=== PATIENT | female | born 1935 | race Caucasian/White ===

== ENCOUNTER → 2018-11-23 | Outpatient (CLI) | payer MEDICARE, MEDICAID ==
[~2018-11-23] MED LIST: ADVI200C5 PO; ASPI81TA85 PO; ATEN50TA2 PO; ATOR1TAB21 PO; ATOR80TA59 PO; BAYE325T16 PO; BREO1INH INH; CALCCHW4 PO; EXEM25TA PO; HYDR-3715 PO; LIDOCAINE 1% MDV 20ML VIAL As Ordered ONE; LOSA50TA88 PO; METF500T13 PO; PLAV1TAB2 PO; PROAAER10 INH; STOO1CAP9 PO
== END ==
LOC: M RADPRO 11:06
PROVIDERS: ATTEND Surgery
DX: R92.0 Mammographic microcalcification found on diagnostic imaging of breast (principal); Z53.8 Procedure and treatment not carried out for other reasons

== ENCOUNTER → 2018-12-28 | Outpatient (CLI) | payer MEDICARE, MEDICAID ==
[~2018-12-28] MED LIST changes: -LIDOCAINE 1% MDV 20ML VIAL As Ordered ONE; +PROHANCE 279.3MG/ML 15ML VIAL (A9576) As Ordered ONE
--- NOTE | 2018-12-29 08:28 | REP ---
Bilateral breast MRI study without and with IV gadolinium: History: History of bilateral breast carcinoma. Calcifications on mammography left breast . Comparison mammography October 25, 2018 and October 24, 2017. Most recent mammography demonstrates coarse dystrophic type calcifications at the surgical site on the left. Technique: 3 Kaitlin MRI imaging was performed with a dedicated breast coil. Axial, coronal, and sagittal T1 and T2-weighted scans were obtained with and without fat saturation in the usual fashion. The study includes dynamically acquired post gadolinium enhanced imaging subtraction imaging. Maximal intensity projection and multiplanar re-formation imaging is included as well. The study was interpreted with the aid of Project WBSD, an FDA approved computer-aided detection (CAD) software program, on a dedicated breast MRI work station. The gadolinium enhancement dose is 13.4 ml of intravenous ProHance. Findings: Breast parenchyma is predominately fat replaced. Mild fibroglandular elements are seen. There is no evidence of axillary lymphadenopathy or breast cystic change. There is postoperative fibrosis in the upper outer quadrant of each breast, left more prominently than right. There is no significant background parenchymal enhancement. Dynamically acquired sequential post gadolinium enhanced images show no suspicious focus of enhancement and/or washout in either breast to suggest malignancy. Subtraction images are unremarkable. No evidence of suspicious gadolinium enhancement is seen at the excisional biopsy site in the left breast or elsewhere. Impression: BIRADS category II benign bilateral breast MRI mammographic findings. Electronically Signed by Karl Ventura MD 12/29/2018 12:24 P
== END ==
LOC: M RAD 14:53
PROVIDERS: ATTEND Nurse Practitioner Family
DX: C50.919 Malignant neoplasm of unspecified site of unspecified female breast (principal)
CPT/HCPCS: A9576; C8908

== ENCOUNTER → 2019-01-17 | Outpatient (REF) | payer MEDICARE, MEDICAID ==
[~2019-01-17] MED LIST changes: -PROHANCE 279.3MG/ML 15ML VIAL (A9576) As Ordered ONE
== END ==
LOC: M LAB LCGH 11:47
PROVIDERS: ATTEND Nurse Practitioner Family
DX: D48.9 Neoplasm of uncertain behavior, unspecified (principal)

== ENCOUNTER → 2019-02-21 | Outpatient (REF) | LOC: M LAB LCGH 15:09 | PROVIDERS: ATTEND Nurse Practitioner Family | DX: D48.9 Neoplasm of uncertain behavior, unspecified (principal) ==

== ENCOUNTER → 2019-10-08 | Outpatient (CLI) | payer MEDICARE, MEDICAID ==
[2019-10-08 11:16] LABS: BASO % 0.3 % (0.0-1.0); EOS % 0.6 % (0.0-3.0); HEMATOCRIT 38.9 % (36.0-47.0); HEMOGLOBIN 13.7 g/dl (12.0-15.5); LYMPH # 1.5 10^3/uL (1.5-5.0); LYMPH % 21.6 % (24.0-44.0); MEAN CORPUSCULAR HEMOGLOBIN 33.4 pg (27.0-33.0); MEAN CORPUSCULAR HGB CONC 35.2 g/dl (32.0-36.5); MEAN CORPUSCULAR VOLUME 94.9 fl (80.0-96.0); MONO # 0.6 10^3/uL (0.0-0.8); MONO % 8.1 % (0.0-5.0); NEUTROPHILS # 4.7 10^3/uL (1.5-8.5); NEUTROPHILS % 69.3 % (36.0-66.0); PLATELET COUNT, AUTOMATED 233 10^3/uL (150-450); WHITE BLOOD COUNT 6.8 10^3/uL (4.0-10.0)
[2019-10-08 11:47] LABS: ALBUMIN 3.7 GM/DL (3.2-5.2); ALT/SGPT 33 U/L (12-78); BILIRUBIN,TOTAL 0.6 MG/DL (0.2-1.0); BLOOD UREA NITROGEN 16 MG/DL (7-18); CALCIUM LEVEL 9.1 MG/DL (8.8-10.2); CARBON DIOXIDE LEVEL 31 MEQ/L (21-32); CHLORIDE LEVEL 102 MEQ/L (98-107); CREATININE FOR GFR 0.75 MG/DL (0.55-1.30); GLOMERULAR FILTRATION RATE > 60.0 (>32); GLUCOSE, FASTING 73 MG/DL (70-100); POTASSIUM SERUM 4.6 MEQ/L (3.5-5.1); SODIUM LEVEL 136 MEQ/L (136-145); TOTAL PROTEIN 6.6 GM/DL (6.4-8.2)
== END ==
LOC: M LAB 10:46
PROVIDERS: ATTEND Internal Medicine Hematology
DX: Z85.3 Personal history of malignant neoplasm of breast (principal)

== ENCOUNTER → 2019-11-07 | Outpatient (REF) | payer MEDICARE | LOC: M LAB REF 18:03 | PROVIDERS: ATTEND Dermatology | DX: L90.5 Scar conditions and fibrosis of skin (principal); L57.8 Other skin changes due to chronic exposure to nonionizing radiation ==

== ENCOUNTER → 2019-12-31 | Outpatient (CLI) | payer MEDICARE ==
[~2019-12-31] MED LIST changes: +ASPI81CH33 PO; -ASPI81TA85 PO; +ASPI81TA86 PO; +ELIQ5TAB PO; +FURO20TA2 PO; +METO1TAB32 PO
[2019-12-31 18:14] LABS: ALBUMIN 3.8 GM/DL (3.2-5.2); ALT/SGPT 28 U/L (12-78); BILIRUBIN,TOTAL 0.3 MG/DL (0.2-1.0); BLOOD UREA NITROGEN 9 MG/DL (7-18); CALCIUM LEVEL 9.2 MG/DL (8.8-10.2); CARBON DIOXIDE LEVEL 29 MEQ/L (21-32); CHLORIDE LEVEL 98 MEQ/L (98-107); GLOMERULAR FILTRATION RATE > 60.0 (>32); GLUCOSE, FASTING 71 MG/DL (70-100); POTASSIUM SERUM 4.9 MEQ/L (3.5-5.1); SODIUM LEVEL 133 MEQ/L (136-145); TOTAL PROTEIN 6.5 GM/DL (6.4-8.2)
[2019-12-31 18:49] LABS: BASO % 0.2 % (0.0-1.0); EOS # 0.1 10^3/uL (0.0-0.5); EOS % 0.7 % (0.0-3.0); HEMATOCRIT 40.6 % (36.0-47.0); HEMOGLOBIN 13.8 g/dl (12.0-15.5); LYMPH % 23.8 % (24.0-44.0); MEAN CORPUSCULAR HEMOGLOBIN 32.9 pg (27.0-33.0); MEAN CORPUSCULAR VOLUME 96.7 fl (80.0-96.0); MONO # 0.7 10^3/uL (0.0-0.8); MONO % 8.9 % (0.0-5.0); NEUTROPHILS # 5.4 10^3/uL (1.5-8.5); NEUTROPHILS % 66.2 % (36.0-66.0); PLATELET COUNT, AUTOMATED 263 10^3/uL (150-450); WHITE BLOOD COUNT 8.2 10^3/uL (4.0-10.0)
== END ==
LOC: M WUC 12:47
PROVIDERS: ATTEND Internal Medicine Hematology
DX: C50.911 Malignant neoplasm of unspecified site of right female breast (principal); C50.912 Malignant neoplasm of unspecified site of left female breast

== ENCOUNTER → 2020-03-28 | Outpatient (CLI) | payer MEDICARE, MEDICAID | LOC: M LABSMTC 10:29 | PROVIDERS: ATTEND Anesthesiology | DX: Z01.812 Encounter for preprocedural laboratory examination (principal); Z20.828 Contact with and (suspected) exposure to other viral communicable diseases | CPT/HCPCS: C9803; U0003 ==

== ENCOUNTER 2020-04-02 06:24 | Day surgery (SDC) | payer MEDICARE, MEDICAID ==
[~2020-04-02] VITALS: Ht 157.5 cm; Wt 68.0 kg
[~2020-04-02 06:24] MED LIST changes: +LR 1,000 ML IV ONE
[2020-04-02] MEDS ORDERED: propofoL 200 MG/20 ML VIAL As Ordered ONE (07:16)
[2020-04-02 08:55] VITALS: BP 104/59
--- NOTE | 2020-04-02 10:06 | ECGEPIP ---
[facility] Test Date: 2020-04-02 Pat Name: EVELYN CARRASQUILLO Department: Room: - Gender: Female Pastry Decorator: ANTONIETA : 1935 Requested By: Rubens Perez Order Number: [id number] Reading MD: Kim Arzola Measurements Intervals [place] Rate: 129 P: MO: 0 QRS: 17 QRSD: 82 T: 253 QT: 302 QTc: 443 Interpretive Statements POSSIBLE ATRIAL FLUTTER/TACHYCARDIA WITH RAPID VENTRICULAR RESPONSE ST DEVIATION AND MODERATE ST T-WAVE ABNORMALITY, CONSIDER INFERO LATERAL ISCHEMIA NO PRIOR Electronically Signed on 04-02-2020 10:05:54 EDT by Kim Arzola
--- NOTE | 2020-04-02 10:09 | ECGEPIP ---
[facility] Test Date: 2020-04-02 Pat Name: EVELYN CARRASQUILLO Department: Room: - Gender: Female Mutual Fund Sales Agent: ANTONIETA : 1935 Requested By: Rbuens Perez Order Number: [id number] Reading MD: Kim Arzola Measurements Intervals [place] Rate: 55 P: 85 DE: 181 QRS: 16 QRSD: 87 T: 50 QT: 440 QTc: 424 Interpretive Statements SINUS BRADYCARDIA WITH OCCASIONAL SUPRAVENTRICULAR PREMATURE COMPLEXES ST & T-WAVE ABNORMALITY INFEROLATERAL CONVERISON FROM POSSIBLE A FLUTTER WITH R RVR 04/02/20 652 Electronically Signed on 04-02-2020 10:08:36 EDT by Kim Arzola
--- NOTE | 2020-04-02 16:16 | RO ---
DATE OF OPERATION: 04/02/2020 PREOPERATIVE DIAGNOSIS: Atrial flutter. POSTOPERATIVE DIAGNOSIS: Atrial flutter. PROCEDURE: Cardioversion. ANESTHESIA: Tayler Taylor CRNA BRIEF HISTORY: Mrs. Serna is a very pleasant 84-year-old female with established coronary artery disease and now persistent atrial fibrillation/flutter of approximately two months duration. She was reasonably rate controlled and anticoagulated but in spite of it she continued to be highly symptomatic complaining of exertional intolerance and profound fatigue. Consequently, we decided to proceed with direct current (DC) cardioversion in order to attempt to restore sinus rhythm. I obtained the necessary consent on an outpatient basis. I explained to the patient and her son that even though the procedure is almost universally successful, there is definitely a chance of early relapse. They understood the implications and she did sign the appropriate consent. PROCEDURE NOTE: Patient presented in fasting condition. After appropriate monitors were applied and timeout was taken, she was cardioverted with 150 joules of energy applied with defibrillation patches in anterior position in synchronized mode. There were no immediate complications and a single shock led to evangelical of sinus rhythm initially with frequent premature atrial contractions (PACs). She was relatively bradycardic after cardioversion with heart rate in the low 50s but otherwise there were no additional problems. At the time of my dictation, 12-lead ECG is pending. The patient will be discharged home on her chronic medications with exception of discontinuation of metoprolol. She already has a scheduled appointment with me tomorrow. JESSICA
== END 2020-04-02 09:08 | disposition home or self-care (01) ==
LOC: M SDC 06:24
PROVIDERS: ATTEND Internal Medicine Cardiovascular Disease
DX: I48.92 Unspecified atrial flutter (principal); I25.10 Atherosclerotic heart disease of native coronary artery without angina pectoris; I10 Essential (primary) hypertension; I25.2 Old myocardial infarction; E78.5 Hyperlipidemia, unspecified; R53.83 Other fatigue; Z79.01 Long term (current) use of anticoagulants; Z79.84 Long term (current) use of oral hypoglycemic drugs; E11.9 Type 2 diabetes mellitus without complications; J44.9 Chronic obstructive pulmonary disease, unspecified; Z88.1 Allergy status to other antibiotic agents; Z87.891 Personal history of nicotine dependence; Z79.82 Long term (current) use of aspirin

== ENCOUNTER → 2020-04-27 | Outpatient (CLI) | payer MEDICARE, MEDICAID ==
[~2020-04-27] MED LIST changes: -LR 1,000 ML IV ONE
== END ==
LOC: M LABSMTC 10:07
PROVIDERS: ATTEND Internal Medicine Cardiovascular Disease
DX: Z01.812 Encounter for preprocedural laboratory examination (principal); Z20.828 Contact with and (suspected) exposure to other viral communicable diseases; I48.3 Typical atrial flutter

== ENCOUNTER 2021-10-02 12:58 | Inpatient (IN) | payer MEDICARE, MEDICAID ==
[~2021-10-02] VITALS: Ht 157.5 cm; Wt 62.5 kg
[~2021-10-02 12:58] MED LIST changes: +LOSA50TA28 PO; -LOSA50TA88 PO; -STOO1CAP9 PO; +STOO240C PO
[2021-10-02] MEDS ORDERED: LOSA25TA13 PO (13:20)
[2021-10-02] MEDS ORDERED: BACTDSTA PO (13:24)
[2021-10-02] MEDS ORDERED: ASPIRIN 81 MG CHEW TABLET PO ONE (13:30)
[2021-10-02 14:27] LABS: BASO % 0.1 % (0.0-1.0); HEMATOCRIT 33.5 % (36.0-47.0); HEMOGLOBIN 11.5 g/dl (12.0-15.5); LYMPH # 0.8 10^3/uL (1.5-5.0); LYMPH % 3.4 % (24.0-44.0); MEAN CORPUSCULAR HGB CONC 34.3 g/dl (32.0-36.5); MEAN CORPUSCULAR VOLUME 96.3 fl (80.0-96.0); MONO # 0.8 10^3/uL (0.0-0.8); MONO % 3.4 % (2.0-8.0); NEUTROPHILS # 22.5 10^3/uL (1.5-8.5); NEUTROPHILS % 92.1 % (36.0-66.0); PLATELET COUNT, AUTOMATED 262 10^3/uL (150-450); RED BLOOD COUNT 3.48 10^6/uL (4.00-5.40); WHITE BLOOD COUNT 24.4 10^3/uL (4.0-10.0)
[2021-10-02 14:38] LABS: INR 1.18; PROTHROMBIN TIME 15.4 SECONDS (12.7-14.5)
[2021-10-02 14:49] LABS: ALBUMIN 3.4 GM/DL (3.2-5.2); BILIRUBIN,DIRECT 0.2 MG/DL (0.0-0.2); BILIRUBIN,TOTAL 0.6 MG/DL (0.2-1.0); CALCIUM LEVEL 9.4 MG/DL (8.8-10.2); CREATININE FOR GFR 1.41 MG/DL (0.55-1.30); GLOMERULAR FILTRATION RATE 37.6 (>32); POTASSIUM SERUM 5.2 MEQ/L (3.5-5.1); TOTAL PROTEIN 6.1 GM/DL (6.4-8.2)
[2021-10-02] MEDS ORDERED: cefTRIAXone SOD 1 GM in D5W MINI-BAG PLUS 50 ML IV ONE (14:50)
[2021-10-02] MEDS ORDERED: AZITHROMYCIN INJ 500 MG, VIAL MATE ADAPTER 1 EACH in NS 250 ML IV ONE (14:50)
[2021-10-02 15:00] LABS: ABG BASE EXCESS -2.3 (-2.0-2.0); ABG HCO3 19.9 MEQ/L (22.0-26.0); ABG O2 SATURATION 98.2 % (95.0-99.0); ABG PARTIAL PRESSURE CO2 26.7 mmHg (35.0-45.0); ABG PARTIAL PRESSURE O2 119.6 mmHg (75.0-100.0); ABG STANDARD HCO3 22.6 MEQ/L (22.0-26.0); ABG TOTAL CO2 20.8 MEQ/L (23.0-31.0); ABG pH (ARTERIAL) 7.491 UNITS (7.350-7.450)
[2021-10-02] MEDS ORDERED: ELIQ2.5T PO (16:21)
[2021-10-02] MEDS ORDERED: LOSA50TA28 PO (16:21)
[2021-10-02] MEDS ORDERED: ACETAMINOPHEN TAB 650MG DOSE (2X325MG) PO PRN (17:05)
[2021-10-02] MEDS ORDERED: MAALOX 30 ML SUSP *UDC PO PRN (17:05)
[2021-10-02] MEDS ORDERED: ASPI-527 PO (17:18)
[2021-10-02] MEDS ORDERED: HOME MED LIST COMPLETE! XX SCH (17:20)
[2021-10-02] MEDS ORDERED: VANCOMYCIN HCL 1,000 MG, VIAL MATE ADAPTER 1 EACH in NS 250 ML IV ONE (18:00)
[2021-10-02] MEDS: FUROSEMIDE 40MG/4ML VIAL (J1940) IV SCH (18:32)
[2021-10-02] MEDS: DOCUSATE SODIUM 100MG CAPSULE PO SCH (22:28)
[2021-10-02] MEDS: CEFEPIME HCL 1 GM in D5W MINI-BAG PLUS 50 ML IV SCH (22:28)
[2021-10-02 22:50] VITALS: BP 131/60
[2021-10-03] MEDS: FUROSEMIDE 40MG/4ML VIAL (J1940) IV SCH ×2 (01:23→09:05)
[2021-10-03 03:51] VITALS: BP 113/48
[2021-10-03] MEDS ORDERED: ALBUTEROL 90 MCG/ACT 8GM HFA INHALER INH PRN (07:20)
[2021-10-03] MEDS ORDERED: IPRATROPIUM 0.5MG/ALBUTEROL 2.5MG INH SOL UD 3ML (DUONEB) NEB PRN (07:20)
[2021-10-03 07:30] LABS: BASO % 0.2 % (0.0-1.0); EOS # 0.1 10^3/uL (0.0-0.5); EOS % 0.6 % (0.0-3.0); HEMATOCRIT 30.3 % (36.0-47.0); HEMOGLOBIN 10.4 g/dl (12.0-15.5); LYMPH # 1.2 10^3/uL (1.5-5.0); LYMPH % 9.5 % (24.0-44.0); MEAN CORPUSCULAR HEMOGLOBIN 32.8 pg (27.0-33.0); MEAN CORPUSCULAR HGB CONC 34.3 g/dl (32.0-36.5); MEAN CORPUSCULAR VOLUME 95.6 fl (80.0-96.0); MONO # 0.7 10^3/uL (0.0-0.8); MONO % 5.6 % (2.0-8.0); NEUTROPHILS # 10.3 10^3/uL (1.5-8.5); NEUTROPHILS % 83.5 % (36.0-66.0); PLATELET COUNT, AUTOMATED 232 10^3/uL (150-450); RED BLOOD COUNT 3.17 10^6/uL (4.00-5.40); WHITE BLOOD COUNT 12.4 10^3/uL (4.0-10.0)
[2021-10-03 07:43] VITALS: BP 130/60
[2021-10-03 08:02] LABS: ALBUMIN 2.9 GM/DL (3.2-5.2); BILIRUBIN,TOTAL 0.8 MG/DL (0.2-1.0); CALCIUM LEVEL 8.8 MG/DL (8.8-10.2); CREATININE FOR GFR 1.5 MG/DL (0.55-1.30); GLOMERULAR FILTRATION RATE 35.1 (>32); MAGNESIUM LEVEL 1.9 MG/DL (1.8-2.4)
[2021-10-03] MEDS: SYMBICORT 160/4.5MCG INHALER 6GM INH SCH ×2 (08:14→19:11)
[2021-10-03] MEDS: APIXABAN 2.5 MG TAB (ELIQUIS) PO SCH ×2 (09:05→20:21)
[2021-10-03] MEDS: DOCUSATE SODIUM 100MG CAPSULE PO SCH ×2 (09:05→20:20)
[2021-10-03] MEDS: ASPIRIN ENTERIC 325 MG TAB PO SCH (09:05)
[2021-10-03] MEDS: LOSARTAN 25 MG TAB PO SCH (09:06)
[2021-10-03 12:00] VITALS: BP 100/48
[2021-10-03 16:00] VITALS: BP 113/53
[2021-10-03] MEDS ORDERED: VANCOMYCIN HCL 750 MG, VIAL MATE ADAPTER 1 EACH in NS 250 ML IV SCH (18:00)
[2021-10-03 19:51] VITALS: BP 110/49
[2021-10-03] MEDS: CEFEPIME HCL 1 GM in D5W MINI-BAG PLUS 50 ML IV SCH (20:20)
[2021-10-03] MEDS ORDERED: ATORVASTATIN 20 MG TAB PO SCH (21:00)
[2021-10-04 04:13] VITALS: BP 120/56
[2021-10-04 06:09] LABS: BASO % 0.2 % (0.0-1.0); EOS # 0.2 10^3/uL (0.0-0.5); EOS % 1.5 % (0.0-3.0); HEMATOCRIT 28.3 % (36.0-47.0); HEMOGLOBIN 9.9 g/dl (12.0-15.5); LYMPH # 1.2 10^3/uL (1.5-5.0); LYMPH % 11.8 % (24.0-44.0); MEAN CORPUSCULAR HEMOGLOBIN 33.2 pg (27.0-33.0); MONO # 0.8 10^3/uL (0.0-0.8); MONO % 8.1 % (2.0-8.0); NEUTROPHILS # 7.6 10^3/uL (1.5-8.5); NEUTROPHILS % 77.6 % (36.0-66.0); PLATELET COUNT, AUTOMATED 205 10^3/uL (150-450); RED BLOOD COUNT 2.98 10^6/uL (4.00-5.40); WHITE BLOOD COUNT 9.8 10^3/uL (4.0-10.0)
[2021-10-04 06:34] LABS: ALBUMIN 2.8 GM/DL (3.2-5.2); CALCIUM LEVEL 8.4 MG/DL (8.8-10.2); CREATININE FOR GFR 1.25 MG/DL (0.55-1.30); GLOMERULAR FILTRATION RATE 43.3 (>32); MAGNESIUM LEVEL 1.9 MG/DL (1.8-2.4); POTASSIUM SERUM 3.7 MEQ/L (3.5-5.1); TOTAL PROTEIN 5.2 GM/DL (6.4-8.2)
[2021-10-04] MEDS: SYMBICORT 160/4.5MCG INHALER 6GM INH SCH (07:11)
[2021-10-04 07:57] VITALS: BP 125/53
[2021-10-04 08:08] VITALS: BP 125/53
[2021-10-04] MEDS: LOSARTAN 25 MG TAB PO SCH (08:08)
[2021-10-04] MEDS: ASPIRIN ENTERIC 325 MG TAB PO SCH (08:08)
[2021-10-04] MEDS: DOCUSATE SODIUM 100MG CAPSULE PO SCH (08:08)
[2021-10-04] MEDS: APIXABAN 2.5 MG TAB (ELIQUIS) PO SCH (08:08)
[2021-10-04] MEDS ORDERED: FUROSEMIDE 40 MG TAB PO SCH (09:00)
[2021-10-04] MEDS ORDERED: FURO20TA2 PO ×2 (09:32→10:34)
[2021-10-04] MEDS ORDERED: LACT1CAP2 PO (09:32)
[2021-10-04] MEDS ORDERED: DOXY100C3 PO ×2 (09:32→10:34)
[2021-10-04] MEDS ORDERED: AMOX875T2 PO (09:32)
[2021-10-04] MEDS ORDERED: AUGMENTIN 875 MG TAB PO ONE (10:30)
[2021-10-04] MEDS ORDERED: AMOX500T2 PO (10:34)
[2021-10-04] MEDS ORDERED: ACID1CAP5 PO (10:35)
[2021-10-04] MEDS ORDERED: DOXYCYCLINE HYCLATE 100MG TABLET PO ONE (11:00)
[2021-10-04] MEDS ORDERED: AUGMENTIN 500 MG TAB PO ONE (11:00)
== END 2021-10-04 11:55 | disposition home health service (06) | DRG 194 ==
LOC: EDBD 12:58 → M ED 12:58 → M ED INP 17:04 → M PCU 23:05
PROVIDERS: ADMIT Family Medicine; ATTEND Family Medicine
DX: J18.9 Pneumonia, unspecified organism (principal); I48.92 Unspecified atrial flutter; I25.10 Atherosclerotic heart disease of native coronary artery without angina pectoris; Z95.2 Presence of prosthetic heart valve; E11.9 Type 2 diabetes mellitus without complications; I11.0 Hypertensive heart disease with heart failure; J43.9 Emphysema, unspecified; Z95.0 Presence of cardiac pacemaker; Z95.3 Presence of xenogenic heart valve; Z85.3 Personal history of malignant neoplasm of breast; Z92.3 Personal history of irradiation; Z79.899 Other long term (current) drug therapy; Z79.82 Long term (current) use of aspirin; Z88.8 Allergy status to other drugs, medicaments and biological substances; I50.9 Heart failure, unspecified

== ENCOUNTER 2023-04-20 14:21 | Inpatient (IN) | payer MEDICARE, MEDICAID ==
[~2023-04-20] VITALS: Ht 157.5 cm; Wt 52.7 kg
[~2023-04-20 14:21] MED LIST changes: +ACID1CAP5 PO; +ALBU1.25 NEB; +ALBU8.5H; +AMOX500T2 PO; +AMOX875T2 PO; +ASPI-527 PO; +BACTDSTA PO; +CLOP75TA99 PO; +DOXY100C3 PO; +ELIQ2.5T PO; +LACT1CAP2 PO; +LOSA25TA13 PO; -PLAV1TAB2 PO; +PRED10TA2
[2023-04-20] MEDS ORDERED: LANC-66 (14:53)
[2023-04-20] MEDS ORDERED: ELIQ5TAB (14:53)
[2023-04-20 17:42] LABS: BASO % 0.3 % (0.0-1.0); EOS # 0.1 10^3/uL (0.0-0.5); HEMATOCRIT 35.6 % (36.0-47.0); HEMOGLOBIN 12.2 g/dl (12.0-15.5); LYMPH # 1.4 10^3/uL (1.5-5.0); LYMPH % 16.1 % (24.0-44.0); MEAN CORPUSCULAR HGB CONC 34.3 g/dl (32.0-36.5); MEAN CORPUSCULAR VOLUME 96.2 fl (80.0-96.0); MONO # 0.6 10^3/uL (0.0-0.8); MONO % 7.4 % (2.0-8.0); NEUTROPHILS # 6.5 10^3/uL (1.5-8.5); NEUTROPHILS % 74.7 % (36.0-66.0); PLATELET COUNT, AUTOMATED 282 10^3/uL (150-450); WHITE BLOOD COUNT 8.6 10^3/uL (4.0-10.0)
[2023-04-20 18:26] LABS: CK-MB VALUE MASS 2.7 NG/ML (<3.6)
[2023-04-20 18:27] LABS: ALBUMIN 3.1 G/DL (3.2-5.2); ALKALINE PHOSPHATASE 89 U/L (46-116); ALT/SGPT 19 U/L (7.0-40); AST/SGOT 21 U/L (<34); BILIRUBIN,DIRECT 0.2 MG/DL (<0.4); BILIRUBIN,TOTAL 0.5 MG/DL (0.3-1.2); BLOOD UREA NITROGEN 17 MG/DL (9-23); CALCIUM LEVEL 8.8 MG/DL (8.3-10.6); CARBON DIOXIDE LEVEL 24 MMOL/L (20-31); CHLORIDE LEVEL 103 MMOL/L (98-107); CREATININE FOR GFR 0.73 MG/DL (0.55-1.30); GLOMERULAR FILTRATION RATE > 60.0 (>32); GLUCOSE, FASTING 123 MG/DL (74-106); POTASSIUM SERUM 3.9 MMOL/L (3.5-5.1); SODIUM LEVEL 138 MMOL/L (136-145); TOTAL PROTEIN 5.7 G/DL (5.7-8.2)
[2023-04-20 18:30] LABS: THYROID STIMULATING HORMONE 2.084 uIU/ML (0.55-4.78)
[2023-04-20] MEDS ORDERED: ISOVUE-370 76% 100ML VIAL As Ordered ONE (18:30)
[2023-04-20 18:31] LABS: CPK CREATINE PHOSPHOKINASE 88 U/L (34-145); MB/CK RELATIVE INDEX 3.06 (< OR =4)
[2023-04-20 18:35] LABS: RSV AMPLIFICATION NEGATIVE (NEGATIVE)
[2023-04-20 19:26] VITALS: O2SAT 94
[2023-04-20 19:48] LABS: CK-MB VALUE MASS 2.5 NG/ML (<3.6)
[2023-04-20 19:49] LABS: MB/CK RELATIVE INDEX 3.04 (< OR =4)
[2023-04-20] MEDS ORDERED: GLUCOSE 4GM CHEW TABLET PO PRN (21:15)
[2023-04-20] MEDS ORDERED: MOM 30ML SUSPENSION UDC PO PRN (21:15)
[2023-04-20] MEDS ORDERED: DEXTROSE 50% 50ML SYRINGE IV PRN (21:15)
[2023-04-20] MEDS ORDERED: GLUCAGON INJ 1MG VIAL SC PRN (21:15)
[2023-04-20] MEDS ORDERED: FURO40TA2 PO (21:58)
[2023-04-20] MEDS ORDERED: ALBU2.5V10 INH (21:58)
[2023-04-20] MEDS ORDERED: ATOR40TA75 PO (21:58)
[2023-04-20] MEDS ORDERED: BREO1INH3 INH (21:58)
[2023-04-20] MEDS ORDERED: LORA-243 PO (21:58)
[2023-04-20] MEDS ORDERED: ELIQ5TAB PO (21:58)
[2023-04-20] MEDS ORDERED: ALBU8.5H INH (21:59)
[2023-04-20] MEDS ORDERED: FUROSEMIDE 20MG/2ML VIAL IV ONE (22:00)
[2023-04-20] MEDS ORDERED: HOME MED LIST COMPLETE! XX SCH (22:00)
[2023-04-20] MEDS ORDERED: ALBUTEROL 90 MCG/ACT 8GM HFA INHALER INH PRN (22:05)
[2023-04-20 22:20] VITALS: BP 165/88; TEMP 98.1; O2SAT 97
[2023-04-20] MEDS: ATORVASTATIN 20 MG TAB PO SCH (22:49)
[2023-04-20] MEDS: APIXABAN 5 MG TAB (ELIQUIS) PO SCH (22:49)
[2023-04-21 00:22] VITALS: BP 131/64
[2023-04-21 06:07] VITALS: BP 112/58; TEMP 97.3; O2SAT 95
[2023-04-21 06:15] LABS: HEMOGLOBIN 12.2 g/dl (12.0-15.5); MEAN CORPUSCULAR HEMOGLOBIN 32.5 pg (27.0-33.0); MEAN CORPUSCULAR HGB CONC 34.9 g/dl (32.0-36.5); MEAN CORPUSCULAR VOLUME 93.3 fl (80.0-96.0); PLATELET COUNT, AUTOMATED 308 10^3/uL (150-450); RED BLOOD COUNT 3.75 10^6/uL (4.00-5.40); WHITE BLOOD COUNT 8.1 10^3/uL (4.0-10.0)
[2023-04-21 06:41] LABS: ALBUMIN 3.1 G/DL (3.2-5.2); ALKALINE PHOSPHATASE 92 U/L (46-116); ALT/SGPT 20 U/L (7.0-40); AST/SGOT 21 U/L (<34); BILIRUBIN,TOTAL 0.5 MG/DL (0.3-1.2); BLOOD UREA NITROGEN 14 MG/DL (9-23); CALCIUM LEVEL 9.2 MG/DL (8.3-10.6); CARBON DIOXIDE LEVEL 26 MMOL/L (20-31); CHLORIDE LEVEL 101 MMOL/L (98-107); CREATININE FOR GFR 0.72 MG/DL (0.55-1.30); GLOMERULAR FILTRATION RATE > 60.0 (>32); GLUCOSE, FASTING 89 MG/DL (74-106); POTASSIUM SERUM 3.7 MMOL/L (3.5-5.1); SODIUM LEVEL 137 MMOL/L (136-145); TOTAL PROTEIN 5.7 G/DL (5.7-8.2)
[2023-04-21 07:10] VITALS: O2SAT 96
[2023-04-21 07:25] VITALS: BP 140/54; TEMP 97; O2SAT 95
[2023-04-21] MEDS: INSULIN LISPRO (NovoLOG) PER UNIT SC SCH ×3 (07:30→16:30)
[2023-04-21] MEDS ORDERED: FUROSEMIDE 40 MG TAB PO SCH (09:00)
[2023-04-21] MEDS ORDERED: FUROSEMIDE 20 MG TAB PO SCH (09:00)
[2023-04-21] MEDS: LORATADINE 10 MG TAB PO SCH (10:04)
[2023-04-21] MEDS: APIXABAN 5 MG TAB (ELIQUIS) PO SCH (10:05)
[2023-04-21] MEDS: DOCUSATE SODIUM 100MG CAPSULE PO SCH ×2 (10:05→20:11)
[2023-04-21] MEDS: FUROSEMIDE 20MG/2ML VIAL IV SCH (10:07)
[2023-04-21 13:47] VITALS: BP 135/52; TEMP 97.7; O2SAT 95
[2023-04-21] MEDS ORDERED: FUROSEMIDE 20MG/2ML VIAL IV ONE (16:00)
[2023-04-21] MEDS: APIXABAN 2.5 MG TAB (ELIQUIS) PO SCH (20:11)
[2023-04-21] MEDS: ATORVASTATIN 20 MG TAB PO SCH (20:11)
[2023-04-21] MEDS ORDERED: ALBUTEROL SULFATE 2.5MG/0.5ML INH NEB SOLN INH SCH (21:00)
[2023-04-21] MEDS ORDERED: INSULIN LISPRO (NovoLOG) PER UNIT SC SCH (21:00)
[2023-04-21 22:00] VITALS: BP 122/52; TEMP 98.4; O2SAT 96
[2023-04-22 03:46] VITALS: O2SAT 95
[2023-04-22 06:00] VITALS: BP 139/56; TEMP 97.7; O2SAT 94
[2023-04-22 06:30] LABS: BASO % 0.4 % (0.0-1.0); EOS # 0.1 10^3/uL (0.0-0.5); EOS % 1.5 % (0.0-3.0); HEMATOCRIT 35.4 % (36.0-47.0); HEMOGLOBIN 12.1 g/dl (12.0-15.5); LYMPH # 1.6 10^3/uL (1.5-5.0); LYMPH % 21.8 % (24.0-44.0); MEAN CORPUSCULAR HEMOGLOBIN 32.7 pg (27.0-33.0); MEAN CORPUSCULAR HGB CONC 34.2 g/dl (32.0-36.5); MEAN CORPUSCULAR VOLUME 95.7 fl (80.0-96.0); MONO # 0.8 10^3/uL (0.0-0.8); MONO % 11.1 % (2.0-8.0); NEUTROPHILS # 4.6 10^3/uL (1.5-8.5); NEUTROPHILS % 64.6 % (36.0-66.0); PLATELET COUNT, AUTOMATED 318 10^3/uL (150-450); WHITE BLOOD COUNT 7.1 10^3/uL (4.0-10.0)
[2023-04-22 06:55] LABS: BLOOD UREA NITROGEN 19 MG/DL (9-23); CALCIUM LEVEL 9.1 MG/DL (8.3-10.6); CARBON DIOXIDE LEVEL 28 MMOL/L (20-31); CHLORIDE LEVEL 103 MMOL/L (98-107); CREATININE FOR GFR 0.84 MG/DL (0.55-1.30); GLOMERULAR FILTRATION RATE > 60.0 (>32); GLUCOSE, FASTING 107 MG/DL (74-106); MAGNESIUM LEVEL 1.6 MG/DL (1.8-2.4); POTASSIUM SERUM 3.7 MMOL/L (3.5-5.1); SODIUM LEVEL 140 MMOL/L (136-145)
[2023-04-22] MEDS: INSULIN LISPRO (NovoLOG) PER UNIT SC SCH ×3 (07:30→16:47)
[2023-04-22] MEDS: FUROSEMIDE 20MG/2ML VIAL IV SCH ×2 (08:14→08:26)
[2023-04-22] MEDS: DOCUSATE SODIUM 100MG CAPSULE PO SCH ×2 (08:14→09:00)
[2023-04-22] MEDS: LORATADINE 10 MG TAB PO SCH (08:14)
[2023-04-22] MEDS: APIXABAN 2.5 MG TAB (ELIQUIS) PO SCH (08:14)
[2023-04-22] MEDS: MAG SULF 1GM/100ML (MAG RUN) 1 GM in IV 1 EA IV SCH ×2 (08:15→08:24)
[2023-04-22] MEDS ORDERED: MAGNESIUM OXIDE 400MG TAB (MAG-OX) PO ONE (08:45)
[2023-04-22] MEDS ORDERED: FUROSEMIDE 40 MG TAB PO SCH (09:00)
[2023-04-22] MEDS ORDERED: FUROSEMIDE 40 MG TAB PO ONE (09:00)
[2023-04-22] MEDS ORDERED: ELIQ2.5T PO (10:47)
[2023-04-22] MEDS ORDERED: FURO40TA2 PO (10:47)
[2023-04-22] MEDS ORDERED: MAGN250T11 PO (13:01)
[2023-04-22 14:00] VITALS: BP 131/57; TEMP 98.2; O2SAT 97
== END 2023-04-22 18:56 | disposition home or self-care (01) | DRG 187 ==
LOC: M ED 14:21 → M ED INP 21:15 → M MSPAV 22:14
PROVIDERS: ADMIT Family Medicine; ATTEND Internal Medicine
DX: J90 Pleural effusion, not elsewhere classified (principal); I50.32 Chronic diastolic (congestive) heart failure; I48.92 Unspecified atrial flutter; J44.9 Chronic obstructive pulmonary disease, unspecified; I11.0 Hypertensive heart disease with heart failure; Z95.0 Presence of cardiac pacemaker; Z85.3 Personal history of malignant neoplasm of breast; Z92.3 Personal history of irradiation; I25.10 Atherosclerotic heart disease of native coronary artery without angina pectoris; E78.5 Hyperlipidemia, unspecified; E11.9 Type 2 diabetes mellitus without complications; Z79.899 Other long term (current) drug therapy; Z88.8 Allergy status to other drugs, medicaments and biological substances

== ENCOUNTER → 2023-06-07 | Outpatient (CLI) | payer MEDICARE, MEDICAID ==
[~2023-06-07] MED LIST changes: +ALBU2.5V10 INH; +ALBU8.5H INH; +ATOR40TA75 PO; +BREO1INH3 INH; +ELIQ5TAB; +FURO40TA2 PO; +LANC-66; +LORA-243 PO; +MAGN250T11 PO
[2023-06-07 16:11] LABS: HEMATOCRIT 36.3 % (36.0-47.0); HEMOGLOBIN 12.3 g/dl (12.0-15.5); MEAN CORPUSCULAR HEMOGLOBIN 33.3 pg (27.0-33.0); MEAN CORPUSCULAR HGB CONC 33.9 g/dl (32.0-36.5); MEAN CORPUSCULAR VOLUME 98.4 fl (80.0-96.0); PLATELET COUNT, AUTOMATED 254 10^3/uL (150-450); RED BLOOD COUNT 3.69 10^6/uL (4.00-5.40); WHITE BLOOD COUNT 9.9 10^3/uL (4.0-10.0)
[2023-06-07 16:18] LABS: ALBUMIN 4.1 G/DL (3.2-5.2); ALKALINE PHOSPHATASE 107 U/L (46-116); ALT/SGPT 27 U/L (7.0-40); AST/SGOT 25 U/L (<34); BILIRUBIN,TOTAL 0.8 MG/DL (0.3-1.2); BLOOD UREA NITROGEN 20 MG/DL (9-23); CALCIUM LEVEL 9.8 MG/DL (8.3-10.6); CARBON DIOXIDE LEVEL 30 MMOL/L (20-31); CHLORIDE LEVEL 100 MMOL/L (98-107); CREATININE FOR GFR 0.84 MG/DL (0.55-1.30); GLOMERULAR FILTRATION RATE > 60.0 (>32); GLUCOSE, FASTING 93 MG/DL (74-106); POTASSIUM SERUM 4.1 MMOL/L (3.5-5.1); SODIUM LEVEL 136 MMOL/L (136-145); TOTAL PROTEIN 6.7 G/DL (5.7-8.2)
== END ==
LOC: M PLAIMG 13:55
PROVIDERS: ATTEND Nurse Practitioner Family
DX: I50.32 Chronic diastolic (congestive) heart failure (principal)